=== PATIENT | female | born 1950 | race Caucasian/White ===

== ENCOUNTER 2022-04-09 10:17 | Day surgery (SDC) | payer OTHER, BC ==
[2022-04-08 16:02] VITALS: BMI 25.9
[2022-04-09 10:45] VITALS: TEMP 97.8
[2022-04-09] MEDS ORDERED: PROPOFOL 60 ML ONE (11:34)
[2022-04-09 12:19] VITALS: RESP 18
[2022-04-09 12:38] VITALS: BP 111/68; PULSE 79
== END 2022-04-09 12:59 | disposition home or self-care (01) ==
LOC: FASU-ENDO 10:17
PROVIDERS: ATTEND Internal Medicine
PROC: 0DBH8ZX Excision of Cecum, Via Natural or Artificial Opening Endoscopic, Diagnostic (ICD-10-PCS; principal; 2022-04-09 11:37)
DX: D12.0 Benign neoplasm of cecum (principal); K57.30 Diverticulosis of large intestine without perforation or abscess without bleeding; K64.8 Other hemorrhoids
CPT/HCPCS: 88305-TC